=== PATIENT | male | born 1970 | race Caucasian/White ===

== ENCOUNTER → 2021-09-23 | Outpatient (CLI) | payer BC | LOC: EXRD 15:21 | DX: R06.02 Shortness of breath (principal) | CPT/HCPCS: 71046 ==

== ENCOUNTER → 2022-02-17 | Outpatient (CLI) | payer BC | LOC: EXRD 11:37 | DX: J20.9 Acute bronchitis, unspecified (principal); J45.901 Unspecified asthma with (acute) exacerbation | CPT/HCPCS: 71046 ==